=== PATIENT | female | born 1945 | race Caucasian/White ===

== ENCOUNTER 2022-05-18 00:48 | Day surgery (SDC) | payer MEDICARE, SELFPAY ==
[2022-05-09 09:27] VITALS: BMI 27.8
[2022-05-18 10:20] VITALS: BP 145/79; PULSE 72; RESP 16; TEMP 36.4; O2SAT 98; BMI 27.9
[2022-05-18] MEDS: LACTATED RINGERS 1,000 ML 150 ML IV CONT (10:31)
--- NOTE | 2022-05-18 10:33 | WPDANESEPPF ---
Anes - Initial Pre Proc Eval Procedure: Operation Date: 05/18/22 11:30 Proposed Procedures p Colonoscopy - Brando Zayas MD s [facility] Hemorrhoid Treatment - Brando Zayas MD Date/Time: 05/18/22 10:33 Surgeon: Brando Zayas MD Pre Op Diagnosis: melena, hemorrhoids Patient Data Age: 77 Gender: F Height: 1.65 m Weight: 76.1 kg Last Vital Signs Temp 97.5 F L 05/18/22 10:20 Pulse 72 05/18/22 10:20 Resp 16 05/18/22 10:20 BP 145/79 H 05/18/22 10:20 Pulse Ox 98 05/18/22 10:20 O2 Del Method Room Air 05/18/22 10:20 Allergies Allergy/AdvReac Type Severity Reaction Status Date / Time iodine Allergy Mild Unknown Verified 05/18/22 10:19 Home Medications Medication Instructions Recorded Confirmed Type alprazolam 0.25 mg tablet 0.25 mg PO DAILY 04/19/22 05/18/22 History aspirin 81 mg tablet,delayed 81 mg PO DAILY 04/19/22 05/18/22 History release (Adult Aspirin Regimen) atorvastatin 20 mg tablet 20 mg PO DAILY 04/19/22 05/18/22 History hydrocortisone acetate 25 mg 25 mg RECTAL BID 10 days #20 ea 04/19/22 05/18/22 Rx rectal suppository (Anusol-HC) levothyroxine 50 mcg capsule 50 mcg PO DAILY 04/19/22 05/18/22 History lisinopril 10 mg tablet 10 mg PO DAILY 04/19/22 05/18/22 History naproxen 500 mg tablet 500 mg PO BID 04/19/22 05/18/22 History omeprazole magnesium 20 mg 20 mg PO DAILY 04/19/22 05/18/22 History tablet,delayed release (Prilosec OTC) Patient hx anesthesia problems: none Family hx anesthesia problems: none Results Review: All pre-operative results and documents have been reviewed as part of the pre-operative evaluation. [facility] Past Medical History Medical History (Updated 04/19/22 @ 14:33 by Bisi Sal APRN) Family hx of colon cancer Fecal smearing Gas bloat syndrome Hematochezia Hx of adenomatous colonic polyps Obesity Surgical History Surgical History (Updated 04/19/22 @ 13:46 by Alyssia Kirk MA) History of hip replacement Family History Family History (Updated 04/19/22 @ 13:48 by Alyssia Kirk MA) Father Hypertension Depression Heart disease Mother Cancer Thyroid disease Social History Social History (Updated 04/19/22 @ 13:50 by Alyssia Kirk MA) Smoking status: Never smoker Second hand tobacco smoke exposure: No Alcohol intake: current Alcohol use details: rare occasional use Substance use: never Substance use type: does not use Living arrangements: alone Spiritual care concerns: No Anes - Eval Final PreProcedure Day of Procedure 05/18/22 10:33 Patient weight: normal Heart: regular rate and rhythm Lungs: clear to auscultation Airway: Mallampati scale class II Neurological: alert and oriented Last oral intake: >/= 8 hours ASA classification: II Emergent: no Anesthetic plan: proceed Anesthesia type and monitoring: general GIVS and standard monitoring Results Review: All pre-operative results and documents have been reviewed as part of the pre-operative evaluation. Informed Consent: The patient's anesthetic plan and its attendant risks and benefits were discussed with the patient/family/POA. Questions were solicited and answers provided to the satisfaction of the patient/family/POA.
--- NOTE | 2022-05-18 11:01 | WPDHPUPDATE1 ---
History and Physical Update Update Date/Time: 05/18/22 11:01 History and Physical has been reviewed, including an updated exam of the patient. There are NO changes in the patient's condition. Risks, benefits, and alternatives have been discussed and questions answered. Patient agrees to proceed with procedure.
[2022-05-18 11:21] VITALS: BP 127/62; PULSE 74; RESP 15; O2SAT 99
[2022-05-18 11:31] VITALS: BP 138/65; PULSE 69; RESP 26; O2SAT 100
[2022-05-18 11:41] VITALS: BP 163/73; PULSE 67; RESP 18; O2SAT 100
== END 2022-05-18 11:49 | disposition home or self-care (01) ==
PROVIDERS: PCP Family Medicine; Visit Provider Internal Medicine Gastroenterology
PROC: 0DJD8ZZ Inspection of Lower Intestinal Tract, Via Natural or Artificial Opening Endoscopic (ICD-10-PCS; CPT 45378; principal; 2022-05-18 11:30)
DX: K92.1 Melena (principal); R15.1 Fecal smearing; R14.3 Flatulence; K57.30 Diverticulosis of large intestine without perforation or abscess without bleeding; K64.8 Other hemorrhoids; Z86.010 Personal history of colon polyps; Z80.0 Family history of malignant neoplasm of digestive organs; I10 Essential (primary) hypertension; E03.9 Hypothyroidism, unspecified; K21.9 Gastro-esophageal reflux disease without esophagitis; E78.5 Hyperlipidemia, unspecified; F41.9 Anxiety disorder, unspecified; Z79.82 Long term (current) use of aspirin
CPT/HCPCS: 45378; J2704; J7120